=== PATIENT | female | born 1935 | race Caucasian/White ===

== ENCOUNTER 2017-12-04 17:17 | Observation (INO) ==
--- NOTE | 2017-12-04 17:34 | Emergency Department Note ---
Disposition Clinical Impression: Atypical chest pain Back pain Qualifiers: Back pain location: thoracic back pain Chronicity: acute Back pain laterality: bilateral Qualified Code(s): M54.6 - Pain in thoracic spine Disposition: Admitted As Inpatient Condition: Fair Referrals: Bam Ordoñez DO [Primary Care Provider] - Forms: ED Satisfaction Letter Time of Disposition: 20:42 General Adult HPI - General Chief complaint: ED Shortness of Breath/Dyspnea Stated complaint: Chest pressure/back pain Time Seen by Provider: 12/04/17 17:18 Source: patient Limitations: no limitations - History of Present Illness Pain Scale: 0 - Related Data Allergies Allergy/AdvReac Type Severity Reaction Status Date / Time clopidogrel [From Plavix] Allergy Difficulty Verified 12/04/17 18:10 Swallowing Past Medical History - Past Medical History Medical history: Reports: hyperlipidemia, hypertension Psychiatric history: Reports: anxiety, depression 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 - Social History Smoking Status: Never smoker Smokeless Tobacco Status: No Alcohol use: Reports: none Drug use: Reports: none Physical Exam - General Limitations: no limitations General appearance: alert, anxious Course Vital Signs Pulse Rate 77 12/04/17 17:22 Respiratory Rate 22 12/04/17 17:22 Blood Pressure 187/79 12/04/17 17:22 O2 Sat by Pulse Oximetry 99 12/04/17 17:22 Temperature 97.2 F L 12/04/17 17:25 Pulse Rate 88 12/04/17 19:00 Respiratory Rate 15 12/04/17 17:33 Blood Pressure 171/69 12/04/17 19:00 O2 Sat by Pulse Oximetry 97 12/04/17 19:00 Oxygen Delivery Oxygen Delivery Room Air Medical Decision Making - Lab Data Result diagrams: 12/04/17 17:39 12/04/17 17:39 Lab Results 12/04/17 12/04/17 12/04/17 Range/Units 17:39 17:39 17:39 WBC 7.4 (4.3-11.1) K/mcL RBC 4.68 (3.82-4.97) M/mcL Hgb 13.8 (11.5-15.4) g/dL Hct 39.5 (35.3-44.9) % MCV 84.4 (83.0-100.0) fL MCH 29.5 (28.0-33.3) pg MCHC 34.9 (31.6-35.5) g/dL RDW 13.4 (11.5-14.5) % Plt Count 216 (140-400) K/mcL MPV 8.8 L (9.4-12.4) fL Immature Gran % 0.4 (0-4) % Seg Neutrophils % 54.4 % Lymphocytes % 35.6 % Monocytes % 7.3 % Eosinophils % 1.6 % Basophils % 0.7 % Neutrophils # 4.0 (1.6-8.9) K/mcL Lymphocytes # 2.6 (0.6-4.6) K/mcL Monocytes # 0.5 (0.0-1.3) K/mcL Eosinophils # 0.1 (0.0-0.6) K/mcL Basophils # 0.1 (0.0-0.2) K/mcL PT 10.7 (9.4-12.1) Seconds INR 1.0 APTT 25.8 L (26.0-36.0) Seconds Sodium (136-145) mEq/L Potassium (3.5-5.1) mEq/L Chloride (98-107) mEq/L Carbon Dioxide (23-29) mEq/L BUN (8-23) mg/dL Creatinine (0.60-1.20) mg/dL Est GFR ( Amer) (> 60) Est GFR (Non-Af Amer) (> 60) BUN/Creatinine Ratio (6-26) Glucose (70-105) mg/dL Calculated Osmolality (280-300) Calcium (8.6-10.3) mg/dL Troponin I (< 0.04) ng/mL B-Natriuretic Peptide 87 (Less than 100) pg/mL 12/04/17 Range/Units 17:39 WBC (4.3-11.1) K/mcL RBC (3.82-4.97) M/mcL Hgb (11.5-15.4) g/dL Hct (35.3-44.9) % MCV (83.0-100.0) fL MCH (28.0-33.3) pg MCHC (31.6-35.5) g/dL RDW (11.5-14.5) % Plt Count (140-400) K/mcL MPV (9.4-12.4) fL Immature Gran % (0-4) % Seg Neutrophils % % Lymphocytes % % Monocytes % % Eosinophils % % Basophils % % Neutrophils # (1.6-8.9) K/mcL Lymphocytes # (0.6-4.6) K/mcL Monocytes # (0.0-1.3) K/mcL Eosinophils # (0.0-0.6) K/mcL Basophils # (0.0-0.2) K/mcL PT (9.4-12.1) Seconds INR APTT (26.0-36.0) Seconds Sodium 137 (136-145) mEq/L Potassium 4.0 (3.5-5.1) mEq/L Chloride 107 (98-107) mEq/L Carbon Dioxide 21 L (23-29) mEq/L BUN 24 H (8-23) mg/dL Creatinine 1.15 (0.60-1.20) mg/dL Est GFR ( Amer) 55 L (> 60) Est GFR (Non-Af Amer) 45 L (> 60) BUN/Creatinine Ratio 21 (6-26) Glucose 114 H (70-105) mg/dL Calculated Osmolality 289 (280-300) Calcium 9.7 (8.6-10.3) mg/dL Troponin I < 0.03 (< 0.04) ng/mL B-Natriuretic Peptide (Less than 100) pg/mL Attestation Statement - Attestation Attestation: I, Tyler Messina DO, examined this patient [id number] and my medical decision-making was reviewed with Adis Carey PGY-1, Resident Physician. I agree with the documented findings, disposition and treatment plan as described except to the extent set forth below. Please see my progress notes for details. 82-year-old female presents to the emergency room with multiple complaints. Over the last several days patient has had pain in between her shoulder blades. She also has issues with numbness tingling paresthesias across her arms and legs. She denies any chest pain shortness of breath headache vision changes nausea vomiting or diarrhea. Denies any fevers or chills. Denies any recent medications or illnesses. Patient has a primary care provider for her is disabled and requires lifting and 8 with everything that he does. On physical exam the patient is anxious. Her heart rate was in the knees. The family says that her vestibular 40. Her blood pressure was initially elevated but the patient did have a presentation of anxiety. Her head is atraumatic pupils are equal round reactive extraocular muscles are intact. The daughter is concerned because she said that she was slurring speech at home with the patient does not actively source speech at this time. She is edentulous in the lower jaw bilaterally in the upper teeth she does have appropriate dentition this time. Oropharynx is patent and symmetrical. Trachea is midline. Lungs are clear to auscultation bilaterally. The patch is removed off her back the repeat patches about [id number]. There is no redness irritation or swelling to the skin in those areas. Heart is regular and lungs are clear. Abdomen is soft nontender nondistended. Because of the pressure sensation and then between her shoulder blades bedside ultrasound was showing what appears to be stable intrathoracic and upper abdominal aorta. The measurements are 1.7 cm x 1.8 cm. Imaging was saved on the ultrasound machine at this time. Patient has no tenderness to the abdomen at this point. She has no distention no guarding no rigidity. She has no pitting edema or swelling in the lower extremities. She was all 4 extremities with purpose she has no cerebellar dysfunction or symptoms at this time. Low clinical concern for stroke-like presentation. Because of patient's pain that radiates into her back as well as her tachycardia and elevated blood pressure she will have immediate CT angiography the chest and abdomen to evaluate and rule out dissection and aneurysm. EKG was collected initially and it showed stable presentation no acute signs of ST segment elevation or abnormality. Chronic right bundle branch was noted. No acute comparable is from 2007. No other acute issues at this time. Disposition workup will be completed. No critical care applied at this time. Patient's physical exam, medical intervention, medical decision- making and disposition will be documented in the resident physician's note. Certainly require admission once workup is completed 1934 Patient has a negative CT angiography of the chest for acute signs of dissection or aneurysm. Patient is feeling better this time. Patient is still having the intermittent tremors. Her chest pressure is gone at this time her heart rate and blood pressure otherwise unremarkable. Patient does not have any acute signs of myocardial infarction but repeat EKG will be collected secondary to the tremors being decreased at this point. Patient will be admitted to the hospital for ACS rule out versus medication related reaction. Aspirin was given. 2030 The patient is still symptom-free at this time. She will be admitted for atypical presentation of chest pain. Patient CT angiography of the chest and abdomen are unremarkable for dissection or aneurysm. Patient is otherwise clinically stable. Will admit for further management and evaluation of cardiac related presentation.
[2017-12-04] MEDS ORDERED: 0.9 % Sodium Chloride 1,000 ML IVC ONE (17:35)
[2017-12-04 17:49] LABS: Basophils # 0.1 K/mcL (0.0-0.2); Basophils % 0.7 %; Eosinophils # 0.1 K/mcL (0.0-0.6); Eosinophils % 1.6 %; Hematocrit 39.5 % (35.3-44.9); Hemoglobin 13.8 g/dL (11.5-15.4); Immature Granulocytes % 0.4 % (0-4); Lymphocytes # 2.6 K/mcL (0.6-4.6); Lymphocytes % 35.6 %; Mean Corpuscular HGB Conc 34.9 g/dL (31.6-35.5); Mean Corpuscular Hemoglobin 29.5 pg (28.0-33.3); Mean Corpuscular Volume 84.4 fL (83.0-100.0); Mean Platelet Volume 8.8 fL (9.4-12.4); Monocytes # 0.5 K/mcL (0.0-1.3); Monocytes % 7.3 %; Platelet Count 216 K/mcL (140-400); Red Blood Count 4.68 M/mcL (3.82-4.97); Red Cell Distribution Width 13.4 % (11.5-14.5); Segmented Neutrophils % 54.4 %
[2017-12-04 18:16] LABS: BUN/Creatinine Ratio 21 (6-26); Blood Urea Nitrogen 24 mg/dL (8-23); Calcium 9.7 mg/dL (8.6-10.3); Carbon Dioxide 21 mEq/L (23-29); Chloride 107 mEq/L (98-107); Glucose 114 mg/dL (70-105); Osmolality,Calculated 289 (280-300); Prothrombin Time 10.7 Seconds (9.4-12.1); Sodium 137 mEq/L (136-145); Troponin I < 0.03 ng/mL (< 0.04); eGFR For African Americans 55 (> 60); eGFR For Non-African Americans 45 (> 60)
[2017-12-04 18:19] LABS: Activated Partial Thrombo Time 25.8 Seconds (26.0-36.0)
--- NOTE | 2017-12-04 19:05 | Emergency Department Note ---
Disposition Clinical Impression: Atypical chest pain, Tremor Back pain Qualifiers: Back pain location: thoracic back pain Chronicity: acute Back pain laterality: bilateral Qualified Code(s): M54.6 - Pain in thoracic spine Disposition: Admitted As Inpatient Condition: Fair Referrals: Bam Ordoñez DO [Primary Care Provider] - Forms: ED Satisfaction Letter Time of Disposition: 20:40 SOB HPI - General Chief Complaint: ED Shortness of Breath/Dyspnea Stated Complaint: Chest pressure/back pain Time Seen by Provider: 12/04/17 17:18 Source: patient Limitations: no limitations - History of Present Illness Mi Yadav is an 82 year old female presenting with multiple complaints. The main complaint is of back pain between her shoulder blades that has been present for a few days. She additionally complains of numbness and paresthesias of all four extremities, as well as chest pressure. She endorses headache. She denies fever, chills, nausea, vomiting, changes in vision, and shortness of breath. Her primary care physician, Dr. Hodges, changed her hypertension medications on 12/02/17, discontinuing amplodipine and metoprolol and starting hydralazine 50 mg TID. 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 Daughter voiced concerns about slurring of speech and tremulousness. - Related Data Allergies Allergy/AdvReac Type Severity Reaction Status Date / Time clopidogrel [From Plavix] Allergy Difficulty Verified 12/04/17 18:10 Swallowing Constitutional: Denies: fever, chills Cardiovascular: Reports: chest pain. 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 Absent: respiratory distress, accessory muscle use - Cardiovascular Cardiovascular exam: Present: regular rate, normal rhythm, normal heart sounds, +S1, +S2 - Abdominal Exam Abdominal exam: Present: soft, Non-Tender. Absent: guarding, rebound - Neurological Exam Neurological exam: Present: alert, oriented X3. Absent: motor sensory deficit - Psychiatric Psychiatric exam: Present: normal affect, normal mood - Skin Skin exam: Present: warm, dry Course Course Narrative: Patient presents with multiple complaints including back pain, chest pressure, tremulousness, and paresthesias. EKG showed chronic right bundle branch block that was present on old EKG. Bedside ultrasound visualized intrathoracic and upper abdominal aorta. With tachycardia, elevated blood pressure, and back pain , CTA of the aorta was ordered to further evaluate for dissection and aneurysm. CT Head w/o contrast was without acute abnormality. CBC, BMP, coags, and troponin were without significant abnormality. Patient's symptoms improved throughout her stay in the ER, but she continued to have tremors. Plan is for admission for ACS rule out. ASA given. Case discussed with admitting hospitalist , Dr. Lockwood, who accepted the patient. Vital Signs Pulse Rate 77 12/04/17 17:22 Respiratory Rate 22 12/04/17 17:22 Blood Pressure 187/79 12/04/17 17:22 O2 Sat by Pulse Oximetry 99 12/04/17 17:22 Temperature 97.2 F L 12/04/17 17:25 Pulse Rate 88 12/04/17 19:00 Respiratory Rate 15 12/04/17 17:33 Blood Pressure 171/69 12/04/17 19:00 O2 Sat by Pulse Oximetry 97 12/04/17 19:00 Oxygen Delivery Oxygen Delivery Room Air Shortness of Breath/Dyspnea - Lab Data Result diagrams: 12/04/17 17:39 12/04/17 17:39 Lab Results 12/04/17 12/04/17 12/04/17 Range/Units 17:39 17:39 17:39 WBC 7.4 (4.3-11.1) K/mcL RBC 4.68 (3.82-4.97) M/mcL Hgb 13.8 (11.5-15.4) g/dL Hct 39.5 (35.3-44.9) % MCV 84.4 (83.0-100.0) fL MCH 29.5 (28.0-33.3) pg MCHC 34.9 (31.6-35.5) g/dL RDW 13.4 (11.5-14.5) % Plt Count 216 (140-400) K/mcL MPV 8.8 L (9.4-12.4) fL Immature Gran % 0.4 (0-4) % Seg Neutrophils % 54.4 % Lymphocytes % 35.6 % Monocytes % 7.3 % Eosinophils % 1.6 % Basophils % 0.7 % Neutrophils # 4.0 (1.6-8.9) K/mcL Lymphocytes # 2.6 (0.6-4.6) K/mcL Monocytes # 0.5 (0.0-1.3) K/mcL Eosinophils # 0.1 (0.0-0.6) K/mcL Basophils # 0.1 (0.0-0.2) K/mcL PT 10.7 (9.4-12.1) Seconds INR 1.0 APTT 25.8 L (26.0-36.0) Seconds Sodium (136-145) mEq/L Potassium (3.5-5.1) mEq/L Chloride (98-107) mEq/L Carbon Dioxide (23-29) mEq/L BUN (8-23) mg/dL Creatinine (0.60-1.20) mg/dL Est GFR ( Amer) (> 60) Est GFR (Non-Af Amer) (> 60) BUN/Creatinine Ratio (6-26) Glucose (70-105) mg/dL Calculated Osmolality (280-300) Calcium (8.6-10.3) mg/dL Troponin I (< 0.04) ng/mL B-Natriuretic Peptide 87 (Less than 100) pg/mL 12/04/17 Range/Units 17:39 WBC (4.3-11.1) K/mcL RBC (3.82-4.97) M/mcL Hgb (11.5-15.4) g/dL Hct (35.3-44.9) % MCV (83.0-100.0) fL MCH (28.0-33.3) pg MCHC (31.6-35.5) g/dL RDW (11.5-14.5) % Plt Count (140-400) K/mcL MPV (9.4-12.4) fL Immature Gran % (0-4) % Seg Neutrophils % % Lymphocytes % % Monocytes % % Eosinophils % % Basophils % % Neutrophils # (1.6-8.9) K/mcL Lymphocytes # (0.6-4.6) K/mcL Monocytes # (0.0-1.3) K/mcL Eosinophils # (0.0-0.6) K/mcL Basophils # (0.0-0.2) K/mcL PT (9.4-12.1) Seconds INR APTT (26.0-36.0) Seconds Sodium 137 (136-145) mEq/L Potassium 4.0 (3.5-5.1) mEq/L Chloride 107 (98-107) mEq/L Carbon Dioxide 21 L (23-29) mEq/L BUN 24 H (8-23) mg/dL Creatinine 1.15 (0.60-1.20) mg/dL Est GFR ( Amer) 55 L (> 60) Est GFR (Non-Af Amer) 45 L (> 60) BUN/Creatinine Ratio 21 (6-26) Glucose 114 H (70-105) mg/dL Calculated Osmolality 289 (280-300) Calcium 9.7 (8.6-10.3) mg/dL Troponin I < 0.03 (< 0.04) ng/mL B-Natriuretic Peptide (Less than 100) pg/mL Attestation Statement - Attestation Attestation: I, Tyler Messina DO, examined this patient [id number] and my medical decision-making was reviewed with Adis Carey PGY-1, Resident Physician. I agree with the documented findings, disposition and treatment plan as described except to the extent set forth below. Please see my progress notes for details.
[2017-12-04] MEDS ORDERED: Aspirin 81 MG TAB.CHEW PO ONE (19:46)
[2017-12-04] MEDS ORDERED: *HR* HYDROcodone/Acet 5/325 mg TABLET PO PRN (22:01)
[2017-12-04] MEDS ORDERED: *HR* Promethazine 25 MG/ML VIAL IVP PRN (22:01)
[2017-12-04] MEDS ORDERED: Naloxone 0.4 MG/ML INJ IVP PRN (22:01)
[2017-12-04] MEDS ORDERED: Ondansetron 4 MG/2 ML VIAL IVP PRN (22:01)
[2017-12-04] MEDS ORDERED: Acetaminophen 325 MG TABLET PO PRN (22:01)
--- NOTE | 2017-12-04 22:15 | Internal Med History&Physical ---
Date of Encounter: 12/04/17 Time of Encounter: 20:40 Internal Medicine - H&P: HPI Chief complaint: Chest discomfort, Shivering Admitted From: Emergency Dept Plans for Post Hospital Care: Home History of present illness: Ms. Yadav is a 82 year old female with known PMH of HTN and HLD who presented to ER with multiple complaints. Pt was started on Hydralazine y/d for her BP. She was on Lisinopril and Metoprolol for BP prior to this , apparently she had dizziness for long time associated some bradycardia so PCP stopped Metoprolol and Lisinopril and started Hydralazine y/d. Now she came to ER with shivering , chest discomfort and uper back pain. Pt was give IV fluids. CTA chest / Abd / Pelvis did not show any aortic disection. She denied any active CP now. Her shivering also better. She denied any fever / cold / cough / URI symptoms / GI / symptoms. Past Med Surg Social Fam HX - Past Medical History Medical history: hyperlipidemia, hypertension Psychiatric history: anxiety, depression - Past Surgical History Surgical History: no surgical history - Social History Smoking Status: Never smoker Smokeless Tobacco Status: No Alcohol use: none Drug use: none - Additional Family History Additional family history: Family hsitory reviewed and non contribuitory to current problem. Internal Medicine - H&P: Meds Citalopram Hydrobromide [Citalopram HBr] 20 mg PO DAILY 12/04/17 [History] Hydralazine HCl 50 mg PO TID 12/04/17 [History] Lisinopril [Zestril] 20 mg PO DAILY 12/04/17 [History] Simvastatin [Zocor] 40 mg PO HS 12/04/17 [History] 3 Allergy/AdvReac Type Severity Reaction Status Date / Time clopidogrel [From Plavix] Allergy Difficulty Verified 12/04/17 18:10 Swallowing Penicillins Allergy Hives Verified 12/04/17 20:45 clindamycin AdvReac Dyspepsia/D Verified 12/04/17 20:45 iarrhea All Systems PM: A 10-system review of systems was performed and is negative for pertinent findings except as documented above in the HPI. Review of systems: All the systems are reviewed everything is benign except the systems and symptoms I mentioned in the history of present illness - Constitutional Vitals: Temp Pulse Resp BP Pulse Ox 97.2 F L 79 15 136/57 95 12/04/17 17:25 12/04/17 22:00 12/04/17 17:33 12/04/17 22:00 12/04/17 22:00 General appearance: Present: A&O X 3 - Head Head exam: Present: atraumatic, normal inspection - Neck Neck exam general surgery: Present: supple - Respiratory Respiratory exam: Present: decreased breath sounds. Absent: rales, respiratory distress, rhonchi, wheezes - Cardiovascular Cardiovascular exam: Present: RRR, +S1, +S2. Absent: tachycardia - GI/Abdominal GI/Abdominal exam: Present: soft. Absent: normal bowel sounds, rebound, rigid, tenderness - Extremities Exam Extremities exam: Absent: calf tenderness, pedal edema, tenderness - Back Exam Back exam: Absent: CVA tenderness (L), CVA tenderness (R) - Neurological Exam Neurological exam: Present: alert, oriented X3 - Psychiatric Psychiatric exam: Present: normal affect, normal mood - Skin Skin exam: Absent: rash Internal Med - H&P Results - Labs CBC & Chem 7: 12/04/17 17:39 12/04/17 17:39 - Assessment and plan (1) Atypical chest pain Current Visit: Yes Status: Acute Assessment and plan: Will admit the pt into Tele for observation Will place pt on aws architect check serial troponin so far negative troponin EKG reviewed - No acute ischemic changes will start pt on ASA, and Nitro PRN for pain Her CP seems to be atypical.. Due to hydralazine side effect held Hdralazine for now Will check FLP in AM (2) Tremor Current Visit: Yes Status: Acute Assessment and plan: Mostly due to hydralazine No signs of infection d/c Hydralazine on Benadryl (3) HTN (hypertension) Current Visit: Yes Status: Acute Assessment and plan: d/c Hydralazine due to possible adverse reaction / side effects with shivering / tremors cont Lisinopril + added Norvasc at 5 mg Did not start her on Metoprolol since pt mentioned about symptomatic bradycardia in the past Qualifiers: Hypertension type: essential hypertension Qualified Code(s): I10 - Essential (primary) hypertension (4) HLD (hyperlipidemia) Current Visit: Yes Status: Acute Assessment and plan: on statin Qualifiers: Hyperlipidemia type: unspecified Qualified Code(s): E78.5 - Hyperlipidemia , unspecified - Time Spent With Patient Total time spent is greater than 50% in coordination of care (as documented) at patient's floor/unit and/or counseling patient:
[2017-12-04] MEDS: amLODIPine 5 MG TABLET PO SCH (22:56)
[2017-12-05 01:15] LABS: Basophils % 0.6 %; Eosinophils # 0.1 K/mcL (0.0-0.6); Eosinophils % 2.1 %; Hemoglobin 12.6 g/dL (11.5-15.4); Immature Granulocytes % 0.3 % (0-4); Lymphocytes # 2.3 K/mcL (0.6-4.6); Lymphocytes % 36.6 %; Mean Corpuscular HGB Conc 34.1 g/dL (31.6-35.5); Mean Corpuscular Hemoglobin 29.5 pg (28.0-33.3); Mean Corpuscular Volume 86.7 fL (83.0-100.0); Monocytes # 0.6 K/mcL (0.0-1.3); Monocytes % 9.4 %; Neutrophils # 3.2 K/mcL (1.6-8.9); Nucleated Red Blood Cells 0.3 /100 WBC (0); Platelet Count 197 K/mcL (140-400); Red Blood Count 4.27 M/mcL (3.82-4.97); Red Cell Distribution Width 13.6 % (11.5-14.5)
[2017-12-05 01:32] LABS: BUN/Creatinine Ratio 19 (6-26); Blood Urea Nitrogen 18 mg/dL (8-23); Carbon Dioxide 25 mEq/L (23-29); Chloride 108 mEq/L (98-107); Chol/HDL Ratio 3.3 (0-4.9); Cholesterol 137 mg/dL (< 200); Glucose 149 mg/dL (70-105); HDL Cholesterol 41 mg/dL (40-59); LDL Cholesterol,Calculated 78 mg/dL (0-99); Magnesium 2.1 mg/dL (1.6-2.6); Osmolality,Calculated 295 (280-300); Potassium 3.7 mEq/L (3.5-5.1); Sodium 140 mEq/L (136-145); Triglycerides 89 mg/dL (< 150); eGFR For African Americans > 60 (> 60); eGFR For Non-African Americans 55 (> 60)
[2017-12-05] MEDS: amLODIPine 5 MG TABLET PO SCH (09:43)
[2017-12-05] MEDS: Lisinopril 20 MG TABLET PO SCH (09:43)
[2017-12-05 12:21] LABS: Adenovirus Not Detected (Not Detect); Bordetella Pertussis Not Detected (Not Detect); Chlamydophila pneumoniae Not Detected (Not Detect); Coronavirus 229E Not Detected (Not Detect); Coronavirus HKU1 Not Detected (Not Detect); Coronavirus NL63 Not Detected (Not Detect); Coronavirus OC43 Not Detected (Not Detect); Human Metapneumovirus Not Detected (Not Detect); Human Rhinovirus/Enterovirus Not Detected (Not Detect); Influenza A Subtype 2009 H1 Not Detected (Not Detect); Influenza A Untypeable Not Detected (Not Detect); Influenza B Not Detected (Not Detect); Mycoplasma pneumoniae Not Detected (Not Detect); Parainfluenza Virus 1 Not Detected (Not Detect); Parainfluenza Virus 2 Not Detected (Not Detect); Parainfluenza Virus 3 Not Detected (Not Detect); Parainfluenza Virus 4 Not Detected (Not Detect); Respiratory Syncytial Virus Not Detected (Not Detect)
[2017-12-05 18:02] LABS: Bilirubin,Urine Negative (Negative); Blood,Urine Negative (Negative); Clarity,Urine Cloudy (Clear); Color,Urine Yellow (Yellow); Glucose,Urine (UA) Normal (Normal); Ketones,Urine Negative (Negative); Leukocyte Esterase,Urine Moderate (Negative); Nitrite,Urine Positive (Negative); Protein,Urine Negative (Neg-Trace); Specific Gravity,Urine 1.012 (1.010-1.025); Urobilinogen,Urine Normal (Normal)
[2017-12-05 18:04] LABS: Bacteria,Urine Many per hpf (None-Few); Hyaline Casts,Urine None Seen per lpf (None-Few); RBC,Urine 0-3 per hpf (0-3); Squamous Epithelial Cell,Urine Moderate per lpf (None-Few); WBC,Urine 15-30 per hpf (0-3)
--- NOTE | 2017-12-05 18:08 | Internal Med Progress Note ---
Date of Encounter: 12/05/17 Time of Encounter: 18:06 - Assessment and plan (1) Atypical chest pain Current Visit: Yes Status: Acute Assessment and plan: serial troponin negative EKG with No acute ischemic changes continueASA, and Nitro PRN for pain CP seems to be atypical. ? Due to hydralazine side effect held Hdralazine for now FLP normal limits (2) Tremor Current Visit: Yes Status: Acute Assessment and plan: Mostly due to hydralazine which is dced No signs of infection on Benadryl (3) HTN (hypertension) Current Visit: Yes Status: Acute Assessment and plan: d/c Hydralazine due to possible adverse reaction / side effects with shivering / tremors cont Lisinopril and Norvasc at 5 mg Did not start Metoprolol since pt mentioned about symptomatic bradycardia in the past blood pressure is stable Qualifiers: Hypertension type: essential hypertension Qualified Code(s): I10 - Essential (primary) hypertension (4) HLD (hyperlipidemia) Current Visit: Yes Status: Acute Assessment and plan: Continue on statin Qualifiers: Hyperlipidemia type: unspecified Qualified Code(s): E78.5 - Hyperlipidemia , unspecified - Time Spent With Patient Total time spent is greater than 50% in coordination of care (as documented) at patient's floor/unit and/or counseling patient: - Subjective Interval history: Patient lying in bed in no acute distress. She states she has been dizzy for a long time. She also has had some intermittent lower extremity edema. She states her blood pressure has been a problem in her doctor has been adjusting her medications because of bradycardia. I explained here the monitor has been showing a sinus rhythm with some PACs in the 60s. She denies any chest pain or shortness of breath - Constitutional Vitals: Temp Pulse Resp BP Pulse Ox 99.1 F 69 16 154/67 94 12/05/17 17:16 12/05/17 17:16 12/05/17 17:16 12/05/17 17:16 12/05/17 17:16 General appearance: Present: cooperative, A&O X 3, pleasant, no acute distress, answers questions appropriately - Head Head exam: Present: atraumatic, normocephalic - Eye Eye exam: Present: PERRL, conjuntiva pink, sclera anicteric. Absent: nystagmus Pupils: Present: PERRL - Neck Neck exam general surgery: Present: supple, trachea midline. Absent: lymphadenopathy - Respiratory Respiratory exam: Present: CTAB. Absent: accessory muscle use, rales, rhonchi, wheezes - Cardiovascular Cardiovascular exam: Present: RRR, +S1, +S2. Absent: diastolic murmur, gallop, rubs, systolic murmur - GI/Abdominal GI/Abdominal exam: Present: normal bowel sounds, soft, no peritoneal signs. Absent: distended, tenderness - Extremities Exam Extremities exam: Present: pedal edema, warm, radial pulses palpable and symmetrical. Absent: calf tenderness, cyanotic - Neurological Exam Neurological exam: Present: alert, CN II-XII intact, oriented X3, no focal deficits. Absent: pronater drift, facial droop, speech deficit - Skin Skin exam: Present: dry, intact, normal color, warm Internal Medicine: Result - Labs CBC & Chem 7: 12/05/17 00:50 12/05/17 00:50 Labs: Short CBC 12/05/17 Range/Units 00:50 WBC 6.3 (4.3-11.1) K/mcL Hgb 12.6 (11.5-15.4) g/dL Hct 37.0 (35.3-44.9) % Plt Count 197 (140-400) K/mcL Neutrophils # 3.2 (1.6-8.9) K/mcL BMP 12/05/17 00:50 Sodium 140 Potassium 3.7 Chloride 108 H Carbon Dioxide 25 BUN 18 Creatinine 0.97 Glucose 149 H Calcium 9.0 Cardiac Enzymes 12/05/17 12/05/17 Range/Units 00:50 06:02 Troponin I 0.03 0.03 (< 0.04) ng/mL - ABG Interpretation ABG results: PT/INR, D-dimer PT 10.7 Seconds (9.4-12.1) 12/04/17 17:39 Consult Discharge Plan - Plan Referrals: Bam Ordoñez DO [Primary Care Provider] -
[2017-12-06 05:40] LABS: Hematocrit 37.2 % (35.3-44.9); Hemoglobin 12.4 g/dL (11.5-15.4); Mean Corpuscular HGB Conc 33.3 g/dL (31.6-35.5); Mean Corpuscular Hemoglobin 29.2 pg (28.0-33.3); Mean Corpuscular Volume 87.5 fL (83.0-100.0); Mean Platelet Volume 8.9 fL (9.4-12.4); Platelet Count 188 K/mcL (140-400); Red Blood Count 4.25 M/mcL (3.82-4.97); Red Cell Distribution Width 13.4 % (11.5-14.5)
[2017-12-06 06:00] LABS: BUN/Creatinine Ratio 20 (6-26); Blood Urea Nitrogen 16 mg/dL (8-23); Calcium 8.9 mg/dL (8.6-10.3); Carbon Dioxide 25 mEq/L (23-29); Chloride 110 mEq/L (98-107); Glucose 116 mg/dL (70-105); Osmolality,Calculated 296 (280-300); Potassium 3.8 mEq/L (3.5-5.1); Sodium 142 mEq/L (136-145); eGFR For African Americans > 60 (> 60); eGFR For Non-African Americans > 60 (> 60)
[2017-12-06] MEDS: amLODIPine 5 MG TABLET PO SCH (08:35)
[2017-12-06] MEDS: Lisinopril 20 MG TABLET PO SCH (08:35)
[2017-12-06 11:20] VITALS: BP 132/71
--- NOTE | 2017-12-06 13:11 | Electrocardiograph Report ---
[place] [id number] Test Date: 2017-12-04 Pat Name: Mi Yadav Department: 103 Room: 3B22 Gender: F [place]dere[place] Clerk: ALINA : 1935 Requested By: Adis Carey Order Number: [id number] Reading MD: Noemí Lopez Measurements Intervals [place] Rate: 70 P: 63 [place]: 182 QRS: 87 QRSD: 148 T: 17 QT: 469 QTc: 490 Interpretive Statements SINUS RHYTHM RIGHT BUNDLE BRANCH BLOCK [120+ ms QRS DURATION, UPRIGHT V1, 40+ ms S IN I/aVL/V4/V5/V6] Electronically Signed On 12-06-2017 13:08:52 EDT by Noemí Lopez
--- NOTE | 2017-12-06 13:16 | Electrocardiograph Report ---
[place] [id number] Test Date: 2017-12-04 Pat Name: Mi Yadav Department: 103 Room: 3B22 Gender: F Marine Mechanic: TMR : 1935 Requested By: Tyler Messina Order Number: [id number] Reading MD: Noemí Lopez Measurements Intervals [place] Rate: 68 P: 52 [place]: 160 QRS: 60 QRSD: 146 T: 17 QT: 459 QTc: 477 Interpretive Statements SINUS RHYTHM RIGHT BUNDLE BRANCH BLOCK [120+ ms QRS DURATION, UPRIGHT V1, 40+ ms S IN I/aVL/V4/V5/V6] BASELINE ARTIFACT Electronically Signed On 12-06-2017 13:15:05 EDT by Noemí Lopez
--- NOTE | 2017-12-06 14:39 | Discharge Summary ---
- NOTES TO OUTPATIENT PROVIDER Notes to Outpatient Provider: f/u with PCP. Spoke with daughter regarding home PT/ot and daughter staes she normally walks 2 miles a day and walks the steps at home. Hold hydralizine, HR in 60s, no chest pain Date of Encounter: 12/06/17 Time of Encounter: 14:37 - Discharge Diagnosis (1) Atypical chest pain Priority: Primary Status: Resolved (2) Tremor Priority: Primary Status: Resolved (3) HTN (hypertension) Priority: Primary Status: Chronic Qualifiers: Hypertension type: essential hypertension Qualified Code(s): I10 - Essential (primary) hypertension (4) HLD (hyperlipidemia) Priority: Primary Status: Chronic Qualifiers: Hyperlipidemia type: unspecified Qualified Code(s): E78.5 - Hyperlipidemia , unspecified (5) Bradycardia Priority: Primary Status: Resolved Comments: was intolerant of BB, better now, 60s consistently on monitor Hospital course: Ms. Yadav is a 82 year old female with a past medical history of hypertension hyperlipidemia and bradycardia presented to the ER with multiple complaints. She was started on Hytrin ranolazine recently for her blood pressure. She had been on lisinopril and metipranolol as well. The metipranolol was stopped for bradycardia. She came to the ER was shivering, chest discomfort and upper back pain. She was given IV fluids. CTA of the chest abdomen and pelvis did not show any aortic dissection or other acute processes. She had resolution of her chest pain and her shivering was improved. She had no fever, cold or cough symptoms, no upper ureter respiratory symptoms no GI or symptoms. No monitor her heart rates been consistently in the 60s. Serial troponins were negative. EKG showed no acute ischemic changes. Her chest pain was atypical and likely due to hydralazine side effect. Hydralazine has been discontinued. Respiratory infection panel was negative. Urine was reviewed and no culture sent Secondary to moderate amount of squamous epithelial cells in the urine sample. Echocardiogram was reviewed LVEF 65%, normal left ventricular diastolic function , normal right ventricular structure and function. Mild aortic regurgitation with mild pulmonary hypertension. All wall segments showed normal motion on rest Echo findings. No acute intracranial abnormalities on the CT of the head CTA od chest, abdomen and pelvis impression calcific arthrosclerosis aorta and other branches including approximately 40-50% and of left renal artery with no aneurysm or dissection. Nonspecific mildly dilated appendix without other features of acute appendicitis. No other CT evidence of an acute abnormality of the chest abdomen or pelvis. Degenerative changes lumbar spine with grade 1 anterior lithiasis of L4 on L5 Chest x-ray stable portable study The patient will return home with her daughter with whom she resides. 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 He has dementia. The daughter states she is very active and independent in her activities. She may walk up to 2 miles a day when the weather is nice and does steps on a regular basis without any difficulty. Discussed this is probably secondary hydralazine which has been stopped. She will continue her Norvasc and lisinopril. Explained that beta blockers and her story is for lowering the heart rate and she is not on any beta blockers at this time. She will follow-up with her primary care physician in 5-7 days. All questions were answered and she will be discharged home. Her daughter does not feel she needs home physical therapy. Discharge discussed with: patient, family, nurse - Time Spent with Patient Total time spent providing and/or coordinating discharge services: Less than 30 minutes - Discharge Medications Prescriptions: amLODIPine [Norvasc] 5 mg PO DAILY 30 Days #30 tablet Home Medications: Citalopram Hydrobromide [Citalopram HBr] 20 mg PO DAILY 12/04/17 [History] Lisinopril [Zestril] 20 mg PO DAILY 12/04/17 [History] Simvastatin [Zocor] 40 mg PO HS 12/04/17 [History] amLODIPine [Norvasc] 5 mg PO DAILY 30 Days #30 tablet 12/06/17 [Rx] Allergies/Adverse Reactions: 3 Allergy/AdvReac Type Severity Reaction Status Date / Time clopidogrel [From Plavix] Allergy Difficulty Verified 12/04/17 18:10 Swallowing Penicillins Allergy Hives Verified 12/04/17 20:45 clindamycin AdvReac Dyspepsia/D Verified 12/04/17 20:45 iarrhea Date of admission: 12/04/17 21:45 Primary care physician: Bam Ordoñez, Consults: 12/05/17 14:37 Consult to Physical Therapy [CONS] Routine Comment: Evaluate, develop and implement POC Reason for Consult: weakness Does patient have active BEDREST order?: No Is patient medically & hemodynamically stable?: Yes Patient assessed for mobility or mobilized this visit?: No Consult to Hospice Patient Care Secretary [CONS] Routine Reason for SW Consult: home needs Discharging clinician: Marjan Herbert Anticipated date of discharge: 12/06/17 - Constitutional Vitals: Temp Pulse Resp BP Pulse Ox 98 F 65 16 132/71 95 12/06/17 11:19 12/06/17 11:19 12/06/17 11:19 12/06/17 11:19 12/06/17 11:19 General appearance: Present: cooperative, A&O X 3, pleasant, no acute distress, answers questions appropriately - Head Head exam: Present: atraumatic, normocephalic - Eye Eye exam: Present: PERRL, conjuntiva pink, sclera anicteric Pupils: Present: PERRL - Neck Neck exam general surgery: Present: supple, trachea midline. Absent: lymphadenopathy - Respiratory Respiratory exam: Present: CTAB. Absent: accessory muscle use, rales, rhonchi, wheezes - Cardiovascular Cardiovascular exam: Present: RRR, +S1, +S2. Absent: diastolic murmur, gallop, rubs, systolic murmur - GI/Abdominal GI/Abdominal exam: Present: normal bowel sounds, soft, no peritoneal signs. Absent: distended, tenderness - Extremities Exam Extremities exam: Present: warm, radial pulses palpable and symmetrical. Absent : calf tenderness, cyanotic, pedal edema - Neurological Exam Neurological exam: Present: alert, CN II-XII intact, normal gait, oriented X3, no focal deficits, strengths equal and symetr throughout. Absent: pronater drift, facial droop, speech deficit - Skin Skin exam: Present: dry, intact, normal color, warm - Patient Status Disposition: Home, Self-Care Condition: Fair Functional capacity at discharge: independent ambulation Overall status at discharge: patient is progressing back to baseline - Discharge Instructions Follow Up With: Bam Ordoñez DO [Primary Care Provider] - - Diet and Activity Activity: increase activity as tolerated Diet: advance to your usual diet, low fat, low cholesterol
== END 2017-12-06 16:05 | disposition home or self-care (01) ==
LOC: EMEROO 17:17 → 3BNU 17:17
PROVIDERS: ADMIT Family Medicine; ATTEND Registered Nurse